=== PATIENT | female | born 1980 | race American Indian/Alaskan Native ===

== ENCOUNTER 2021-12-31 15:42 | Emergency (ER) | payer SELFPAY ==
[2021-12-31 16:40] VITALS: BP 144/83
--- NOTE | 2021-12-31 18:45 | Emergency Department Report ---
ED ENT HPI - General Chief complaint: Earache Stated complaint: EARACHE R SIDE HEADACHE Time Seen by Provider: 12/31/21 17:39 Source: patient Mode of arrival: Ambulatory Limitations: No Limitations - History of Present Illness Initial comments: 41-year-old female presents to the emergency department complaining of a few day history of not progressing right ear pressure like pain sensation she is underwater from time to time associated with some radiating pressure to the right side of her head. She reports no hemoptysis symptoms hematochezia, no tin nitus, no fever, chills, sweats. No odynophagia or dysphagia. She reports no head trauma no bowel sounds or recent diving excursions or trips complaints. Few temperatures attempted to depressurized the EHE[facility] that mitigates the symptoms but been unsuccessful and is seeking treatment to help stop the sensation of fullness and pressure to her right ear Location: R ear Severity: mild Quality: dull Consistency: constant Improves with: none Worsens with: none Associated Symptoms: denies: gum swelling, toothache, tinnitus, hearing loss, discharge from ear, rhinorrhea - Related Data Previous Rx's Medication Instructions Recorded Last Taken Type Dicyclomine [Bentyl] 20 mg PO BID #14 tablet 12/12/13 Unknown Rx Famotidine [Pepcid] 20 mg PO BID #30 tablet 12/12/13 Unknown Rx Ciprofloxacin HCl [Ciprofloxacin 500 mg PO BID #20 tablet 05/09/14 Unknown Rx TAB] oxyCODONE /ACETAMINOPHEN [Percocet 1 tab PO Q6HR PRN #20 tablet 05/09/14 Unknown Rx 5/325] Acetaminophen/Codeine [Tylenol #3] 1 tab PO Q6H #15 tab 03/02/15 Unknown Rx Ondansetron [Zofran Odt] 4 mg PO TID #9 tab.rapdis 03/02/15 Unknown Rx Amoxicillin [Amoxicillin TAB] 875 mg PO BID #20 tablet 10/12/19 Unknown Rx Nystas/Diphen/Xyl Visc/Mylanta 15 ml MM Q4H PRN 5 Days ml 10/12/19 Unknown Rx [Magic Mouthwash] Desloratadine [Clarinex] 5 mg PO DAILY #7 12/31/21 Unknown Rx predniSONE [Deltasone] 20 mg PO QDAY #7 tab 12/31/21 Unknown Rx Allergies Allergy/AdvReac Type Severity Reaction Status Date / Time No Known Allergies Allergy Verified 03/02/15 07:36 ED Dental HPI - General Chief complaint: Earache Stated complaint: EARACHE R SIDE HEADACHE Time Seen by Provider: 12/31/21 17:39 Source: patient Mode of arrival: Ambulatory Limitations: No Limitations - Related Data Previous Rx's Medication Instructions Recorded Last Taken Type Dicyclomine [Bentyl] 20 mg PO BID #14 tablet 12/12/13 Unknown Rx Famotidine [Pepcid] 20 mg PO BID #30 tablet 12/12/13 Unknown Rx Ciprofloxacin HCl [Ciprofloxacin 500 mg PO BID #20 tablet 05/09/14 Unknown Rx TAB] oxyCODONE /ACETAMINOPHEN [Percocet 1 tab PO Q6HR PRN #20 tablet 05/09/14 Unknown Rx 5/325] Acetaminophen/Codeine [Tylenol #3] 1 tab PO Q6H #15 tab 03/02/15 Unknown Rx Ondansetron [Zofran Odt] 4 mg PO TID #9 tab.rapdis 03/02/15 Unknown Rx Amoxicillin [Amoxicillin TAB] 875 mg PO BID #20 tablet 10/12/19 Unknown Rx Nystas/Diphen/Xyl Visc/Mylanta 15 ml MM Q4H PRN 5 Days ml 10/12/19 Unknown Rx [Magic Mouthwash] Desloratadine [Clarinex] 5 mg PO DAILY #7 12/31/21 Unknown Rx predniSONE [Deltasone] 20 mg PO QDAY #7 tab 12/31/21 Unknown Rx Allergies Allergy/AdvReac Type Severity Reaction Status Date / Time No Known Allergies Allergy Verified 03/02/15 07:36 ED Review of Systems ROS: Stated complaint: EARACHE R SIDE HEADACHE Other details as noted in HPI Comment: All other systems reviewed and negative ED Past Medical Hx - Past Medical History Hx GERD: Yes Additional medical history: fibroids, gallstones - Surgical History Additional Surgical History: c sectionx1 - Social History Smoking Status: Never Smoker Substance Use Type: Alcohol - Medications Home Medications: Home Medications Medication Instructions Recorded Confirmed Last Taken Type Dicyclomine [Bentyl] 20 mg PO BID #14 tablet 12/12/13 Unknown Rx Famotidine [Pepcid] 20 mg PO BID #30 tablet 12/12/13 Unknown Rx Ciprofloxacin HCl [Ciprofloxacin 500 mg PO BID #20 tablet 05/09/14 Unknown Rx TAB] oxyCODONE /ACETAMINOPHEN [Percocet 1 tab PO Q6HR PRN #20 tablet 05/09/14 Unknown Rx 5/325] Acetaminophen/Codeine [Tylenol #3] 1 tab PO Q6H #15 tab 03/02/15 Unknown Rx Ondansetron [Zofran Odt] 4 mg PO TID #9 tab.rapdis 03/02/15 Unknown Rx Amoxicillin [Amoxicillin TAB] 875 mg PO BID #20 tablet 10/12/19 Unknown Rx Nystas/Diphen/Xyl Visc/Mylanta 15 ml MM Q4H PRN 5 Days ml 10/12/19 Unknown Rx [Magic Mouthwash] Desloratadine [Clarinex] 5 mg PO DAILY #7 12/31/21 Unknown Rx predniSONE [Deltasone] 20 mg PO QDAY #7 tab 12/31/21 Unknown Rx ED Physical Exam - General Limitations: No Limitations General appearance: alert, in no apparent distress - Head Head exam: Present: atraumatic, normocephalic - Eye Eye exam: Present: normal appearance, PERRL, EOMI Pupils: Present: normal accommodation - ENT ENT exam: Present: mucous membranes moist, other (Some bulging to the right tympanic membrane no effusion noted. No tragal tenderness the ear canal is patent no significant erythema. No tenderness from with pinna. No ear discharge.) - Neck Neck exam: Present: normal inspection - Respiratory Respiratory exam: Present: normal lung sounds bilaterally. Absent: respiratory distress, wheezes, rales, accessory muscle use, decreased breath sounds - Cardiovascular Cardiovascular Exam: Present: regular rate, normal rhythm. Absent: systolic murmur, diastolic murmur, rubs, gallop - GI/Abdominal GI/Abdominal exam: Present: soft, normal bowel sounds. Absent: tenderness, guarding - Extremities Exam Extremities exam: Present: normal inspection - Back Exam Back exam: Present: normal inspection - Neurological Exam Neurological exam: Present: alert, oriented X3 - Psychiatric Psychiatric exam: Present: normal affect, normal mood - Skin Skin exam: Present: warm, dry, intact, normal color. Absent: rash ED Course Vital Signs 12/31/21 16:35 Temperature 98.6 F Pulse Rate 75 Blood Pressure 144/83 [Right] O2 Sat by Pulse 98 Oximetry Critical care attestation.: If time is entered above; I have spent that time in minutes in the direct care of this critically ill patient, excluding procedure time. ED Disposition Clinical Impression: Otalgia Disposition: 01 HOME / SELF CARE / HOMELESS Is pt being admited?: No Does the pt Need Aspirin: No Condition: Stable Instructions: Earache, Adult Prescriptions: Desloratadine [Clarinex] 5 mg PO DAILY #7 predniSONE [Deltasone] 20 mg PO QDAY #7 tab Referrals: GLIL COVARRUBIAS MD [Referring] - 3-5 Days
== END 2021-12-31 18:30 | disposition home or self-care (01) ==
LOC: ED 15:42
DX: H92.01 Otalgia, right ear (principal); K21.9 Gastro-esophageal reflux disease without esophagitis; Z98.890 Other specified postprocedural states; Z79.899 Other long term (current) drug therapy
CPT/HCPCS: 99282